=== PATIENT | female | born 1955 | race Caucasian/White ===

== ENCOUNTER 2016-11-05 14:20 | Emergency (ER) | payer OTHER ==
[2016-11-05 14:28] VITALS: BP 174/78; PULSE 53; RESP 18; TEMP 98.2
[2016-11-05] MEDS ORDERED: IBUPROFEN 600 MG TAB PO STA (14:31)
--- NOTE | 2016-11-05 14:35 | ED ---
General Adult HPI - General Chief complaint: Extremity Injury, Lower Stated complaint: L knee/R hip injury. [facility] Time Seen by Provider: 11/05/16 14:27 Source: patient, RN notes reviewed Mode of arrival: ambulatory Limitations: no limitations - History of Present Illness Initial comments: 61-year-old female presents to the emergency Department chief complaint of left hand. Patient states that she is onto her left butt area left knee. Patient states that she now has limited pain to the medial aspect of the left knee. Patient states was able to get up and walk after but work sent her here. Patient states her pain is moderate there is no radiation.Patient denies any recent fever, chills, shortness of breath, chest pain, back pain, abdominal pain , nausea vomiting, numbness or tingling, dysuria or hematuria, constipation or diarrhea, headaches or visual changes, or any other current symptoms. - Related Data Home Medications Medication Instructions Recorded Confirmed Albuterol Inhaler [Ventolin Hfa 1 - 2 puff INHALATION RT-Q6H PRN 02/18/16 Inhaler] Ergocalciferol [Vitamin D2] 50,000 unit PO Q7D 02/18/16 11/05/16 Estrogen,Con/M-Progest Acet 1 tab PO DAILY 02/18/16 11/05/16 [Prempro 0.3 mg-1.5 mg Tablet] Levothyroxine Sodium [Synthroid] 112 mcg PO DAILY 02/18/16 11/05/16 Nadolol [Corgard] 10 mg PO DAILY 02/18/16 11/05/16 Allergies Allergy/AdvReac Type Severity Reaction Status Date / Time droperidol Allergy Unknown Verified 11/05/16 14:28 prochlorperazine Allergy Unknown Verified 11/05/16 14:28 [From Compazine] Review of Systems ROS Statement: Those systems with pertinent positive or pertinent negative responses have been documented in the HPI. ROS Other: All systems not noted in ROS Statement are negative. Past Medical History Past Medical History: Asthma, Thyroid Disorder Additional Past Medical History / Comment(s): HYPOTHYROID, MIGRAINES,"PROLAPSED HEART VALVE" History of Any Multi-Drug Resistant Organisms: None Reported Past Surgical History: Heart Catheterization Additional Past Surgical History / Comment(s): CERVICAL FUSION, LAMINECTOMY, RK SX MARINE EYES Past Anesthesia/Blood Transfusion Reactions: No Reported Reaction, Motion Sickness Past Psychological History: No Psychological Hx Reported Smoking Status: Never smoker Past Alcohol Use History: None Reported Past Drug Use History: None Reported - Past Family History Mother Family Medical History: CVA/TIA Father Family Medical History: Cancer Additional Family Medical History / Comment(s): LUNG CANCER General Exam - General Exam Comments Initial Comments: General: The patient is awake and alert, in no distress, and does not appear acutely ill. Neck: The neck is supple, there is no tenderness. Cardiovascular: There is a regular rate and rhythm. No murmur, rub or gallop is appreciated. Respiratory: Lungs are clear to auscultation, respirations are non-labored, breath sounds are equal. No wheezes, stridor, rales, or rhonchi. Musculoskeletal: Sensation intact with 2+ pulses throughout the left extremity. Full range of motion of left hip left knee and left ankle. 5 out of 5 muscle strength testing. Patient does appear to have some tenderness to the medial anterior aspect of the left knee. No tenderness to patient the left hip. Neurological: CN II-XII intact, There are no obvious motor or sensory deficits. Coordination appears grossly intact. Speech is normal. Skin: Skin is warm and dry and no rashes or lesions are noted. Psychiatric: Normal mood and affect. Limitations: no limitations Course Vital Signs 11/05/16 14:26 Temperature 98.2 F Pulse Rate 53 L Respiratory 18 Rate Blood Pressure 174/78 O2 Sat by Pulse 98 Oximetry Procedures - Orthopedic Splinting/Casting Injury #1 Side: left Lower Extremity Injury Location: knee Lower Extremity Immobilizer: Helder wrap Medical Decision Making - Medical Decision Making 61-year-old female presents for treatment and fall. This time x-rays are reviewed that do not show any acute process. Patient was admitted for left knee strain in the left hip contusion from the fall. We discussed follow-up and return parameters and care for home and on the patient's questions. She stated she understood and she is given the plan. She'll be discharged. - Radiology Data Radiology results: report reviewed, image reviewed Disposition Clinical Impression: Left knee sprain, Contusion of left hip Disposition: HOME SELF-CARE Condition: Stable Instructions: Knee Sprain (ED), Contusion in Adults (ED) Additional Instructions: Please use medication as discussed. Please follow up with family doctor if symptoms have not improved over the next two days. Please return to the emergency room if your symptoms increase or worsen or for any other concerns. Referrals: Tylor Berger MD [Primary Care Provider] - 1-2 days Time of Disposition: 14:51
--- NOTE | 2016-11-05 14:48 | XR ---
EXAMINATION TYPE: XR Hip RT and AP Pelvis , 3 VIEWS DATE OF EXAM ORDERED: 11/05/2016 HISTORY: Pain. COMPARISON: None. FINDINGS: There are multiple phleboliths within the pelvis. Osseous structures about the pelvis are normal. No fracture is seen. Both hips are unremarkable. No f racture is seen. IMPRESSION: NO ACUTE OSSEOUS LESION.
--- NOTE | 2016-11-05 14:49 | XR ---
EXAMINATION TYPE: XR knee complete LT , 3 VIEWS DATE OF EXAM ORDERED: 11/05/2016 HISTORY: Pain. COMPARISON: None. FINDINGS: Joint spaces are well-maintained. No fracture, dislocation or joint effusion is seen. IMPRESSION: NO ACUTE OSSEOUS LESION.
== END 2016-11-05 15:02 | disposition home or self-care (01) ==
LOC: EC 14:20
DX: S83.92XA Sprain of unspecified site of left knee, initial encounter (principal); S70.02XA Contusion of left hip, initial encounter; E03.9 Hypothyroidism, unspecified; Z88.8 Allergy status to other drugs, medicaments and biological substances; Z79.890 Hormone replacement therapy; Z79.899 Other long term (current) drug therapy; W01.0XXA Fall on same level from slipping, tripping and stumbling without subsequent striking against object, initial encounter; Y93.89 Activity, other specified; Y99.0 Civilian activity done for income or pay; Y92.69 Other specified industrial and construction area as the place of occurrence of the external cause
CPT/HCPCS: 73502; 99283

== ENCOUNTER → 2018-02-07 | Outpatient (CLI) | payer BC ==
--- NOTE | 2018-02-07 09:00 | US ---
EXAMINATION TYPE: US thyroid st tissue head/neck DATE OF EXAM: 02/07/2018 COMPARISON: NONE CLINICAL HISTORY: E03.8 Other specified hypothyroidism. GLAND SIZE: Right Lobe: cm Overall Parenchyma: Left Lobe: cm Overall Parenchyma: Isthmus Thickness: cm NODULES RIGHT: # of nodules measured on right: 1. X x cm nodule at the pole with margins; . This nodule is and shows . Prior size: x x cm 2. X x cm nodule at the pole with margins; . This nodule is and shows . Prior size: x x cm 3. X x cm nodule at the pole with margins; . This nodule is and shows . Prior size: x x cm 4. X x cm nodule at the pole with margins; . This nodule is and shows . Prior size: x x cm LEFT: # of nodules measured on left: 1. X x cm nodule at the pole with margins; . This nodule is and shows . Prior size: x x cm 2. X x cm nodule at the pole with margins; . This nodule is and shows . Prior size: x x cm 3. X x cm nodule at the pole with margins; . This nodule is and shows . Prior size: x x cm 4. X x cm nodule at the pole with margins; . This nodule is and shows . Prior size: x x cm ISTHMUS: # of nodules measured in the isthmus: 1. X x cm nodule at the pole with margins; . This nodule is and shows . Prior size: x x cm Bilateral neck scanned, no evidence of lymphadenopathy. IMPRESSION: EXAMINATION TYPE: US thyroid st tissue head/neck DATE OF EXAM: 02/07/2018 COMPARISON: NONE CLINICAL HISTORY: E03.8 Other specified hypothyroidism. MEASUREMENTS: GLAND SIZE: Right Lobe: 3.0 x 1.3 x 1.2 cm Left Lobe: 2.3 x 1.4 x 1.4 cm Isthmus Thickness: 0.3 cm Thyroid gland is slightly heterogenous in echotexture. NODULES RIGHT: # of nodules measured on right: 0 LEFT: # of nodules measured on left:0 ISTHMUS: # of nodules measured within isthmus:0 Bilateral neck scanned, no evidence of lymphadenopathy. IMPRESSION: Slight thyroid parenchymal heterogeneity without focal nodule can be seen in chronic hyp othyroidism.
== END | disposition home or self-care (01) ==
LOC: RADUSWWP 08:00
PROVIDERS: ATTEND Internal Medicine Endocrinology, Diabetes & Metabolism
DX: E03.8 Other specified hypothyroidism (principal)
CPT/HCPCS: 76536